=== PATIENT | female | born 1955 | race Caucasian/White ===

== ENCOUNTER → 2021-07-24 | Outpatient (CLI) | payer MEDICARE, OTHER ==
[2017-06-06 10:30] VITALS: BP 101/58
[~2021-07-24] MED LIST: LIDOCAINE 1% Multi-Dose 20 ML VIAL. INJ ONE; LIDOCAINE 2%/EPI 1:100,000 20 ML VIAL. INJ ONE; [UNRECOGNIZED DRUG - CODE] PO
--- NOTE | 2021-07-24 14:07 | RAD ---
EXAM: 1. STEREOTACTICALLY GUIDED VACUUM ASSISTED LEFT BREAST CORE BIOPSY. 2. POSTCLIP DIGITAL LEFT MAMMOGRAPHY. 3. SPECIMEN RADIOGRAPH. 4. LEFT BREAST ULTRASOUND. HISTORY: Left breast masses on prior ultrasound. Left breast microcalcifications. Stereotactic biopsy is requested. FINDINGS: Sonography of the left breast was performed and compared with the prior study of 07/02/2021 . A circumscribed hypoechoic nodule at the 11:00 periareolar position corresponds with the lesion not ed at 11:00 3 cm from the nipple previously and measures 6 x 4 mm. This may correspond with the mammo graphic finding. This appears benign. The other hypoechoic region at the 2:00 position is most likely normal fat interspersed between dense parenchyma. No sonographic target for biopsy is identified. Stereotactic biopsy and its risks and benefits were discussed with the patient. Risks discussed inclu ded, but were not limited to, pain, infection, bleeding and the potential need for repeat biopsy. The patient provided verbal and written consent. A timeout procedure was performed. The target calcifications posteriorly were localized stereotactically from a lateral approach. The ti ny calcifications were difficult to visualize superimposed on dense parenchyma. The overlying skin wa s sterilely prepped and infiltrated with 1% lidocaine for local anesthesia. The deeper soft tissues w ere infiltrated with 2% lidocaine with epinephrine for anesthesia and hemostasis. A vacuum-assisted c ore biopsy system was advanced to the target under stereotactic guidance. 14 core biopsy specimens we re obtained. A specimen radiograph demonstrates a few tiny calcifications within the specimens. A pos tbiopsy clip was placed and postoperative images were obtained. Instrumentation was withdrawn and pre ssure held and hemostasis. A sterile dressing was placed. There were no immediate complications. Postclip digital left mammography was obtained in CC and MLO projections and interpreted on a [employer] ed workstation. The the targeted calcifications are difficult to identify in the CC projection, and t hus the suggested cluster seen on the MLO view may be simulated by superimposition. The postbiopsy cl ip but appears to 8 mm superior to the main cluster, and is just lateral to the nipple line. A questi onable group of calcifications is seen much more medially on the CC projection, but these appear more scattered. Other scattered calcifications are seen very laterally. IMPRESSION: 1. The target calcifications on the MLO projection were difficult to visualize stereotactically, and this cluster may be simulated by superimposition. The postbiopsy clip does not clearly correspond wit h the suggested site medially on the CC projection, but is within 1 cm of the calcifications on the M L projection. It is likely that the entire medial-lateral dimension of the target zone was sampled, a s the length of the trough encompassed almost the entire compressed width of the breast. However, con cordance with the target is not certain. It is unclear that localization would be more successful on a second attempt. Six-month follow-up mammography and ongoing attention to these calcifications on fu rther mammography is recommended. These findings were discussed with the patient. Pathological result s will be reviewed and an addendum issued. 2. A few calcifications are included on the specimen radiograph. 3. Six-month follow-up left breast ultrasound is recommended to demonstrate stability of small periar eolar hypoechoic foci as above. Electronically signed by: Sara Panda MD (07/24/2021 2:05 PM) [id number]
--- NOTE | 2021-07-25 18:06 | PATHOLOGY ---
[facility] Accession Number: [id number] . 01 Material submitted: . breast - LEFT BREAST TISSUE. Modifiers: left . 01 Clinical history: . LEFT BREAST CALCIFICATIONS LEFT BREAST STEREOTACTIC BIOPSY . 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 - Proliferative fibrocystic changes with the following components: - Florid ductal epithelial hyperplasia, focal. - Stromal fibrosis. - Mild duct ectasia, focal. - Microcysts, few. - Apocrine metaplasia, focal. - Fibroadenomatous change, focal. - Focal microcalcifications identified. (JPM:olga; 07/25/2021) S 07/25/2021 1724 Local . 02 Comment: There are focal microcalcifications identified. These are primarily associated with intraductal papillomas. There is no atypia or evidence of malignancy. (JPM:olga; 07/25/2021) . 02 Electronically signed: . Jac Green MD, Pathologist NPI- [id number] . 01 Gross description: . The specimen is received in formalin, labeled "Shelbi Echevarria, left breast". Received are 21 needle cores of fibrofatty tissue inside a cassette and with no free floating tissue within the specimen container measuring 4.2 x 1.8 x 0.2 cm in aggregate dimensions. The specimen is submitted entirely in cassettes A1 to A6. The specimen is collected at 12:35 PM and placed into formalin at 12:48 PM on 07/24/2021. The specimen is removed from formalin at 9:40 PM on 07/24/2021. The total formalin fixation time is 9 hours and 5 minutes.([facility]; 07/24/2021) [facility] 07/24/2021 1805 [facility] . 02 Pathologist provided ICD-10: D24.2, N62, N60.82, N60.12, N60.32, N60.42, N60.02 . 02 CPT . 528535 Specimen Comment: A courtesy copy of this report has been sent to [phone], [phone] Specimen Comment: [id number], Specimen Comment: Report sent to , DR AREVALO / DR PARRISH Specimen Comment: A duplicate report has been generated due to demographic updates. Performed at: 01 [facility] [address], [place] [id number] MD Felipe Cardozo MD Phone: [phone] Performed at: 02 [facility] [address] [place], [place] [id number] MD Jac Green MD Phone: [phone]
== END | disposition home or self-care (01) ==
LOC: US 09:59
PROVIDERS: ATTEND Surgery
DX: R92.0 Mammographic microcalcification found on diagnostic imaging of breast (principal); R92.8 Other abnormal and inconclusive findings on diagnostic imaging of breast; D24.2 Benign neoplasm of left breast; N60.82 Other benign mammary dysplasias of left breast; N60.12 Diffuse cystic mastopathy of left breast; N60.42 Mammary duct ectasia of left breast; N60.02 Solitary cyst of left breast; E03.9 Hypothyroidism, unspecified; Z98.51 Tubal ligation status; Z98.890 Other specified postprocedural states; Z79.899 Other long term (current) drug therapy; Z88.2 Allergy status to sulfonamides
CPT/HCPCS: 19081; 76641; 77065; 88305; J3490